=== PATIENT | male | born 1955 | race Two or more races ===

== ENCOUNTER 2021-10-01 18:33 | Emergency (ER) | payer SELFPAY ==
[~2021-10-01] VITALS: Ht 185.4 cm; Wt 73.0 kg
[2021-10-01 18:36] VITALS: BP 160/90
== END 2021-10-01 22:32 | disposition left against medical advice (07) ==
LOC: ER 18:33
DX: R10.9 Unspecified abdominal pain (principal); Z53.21 Procedure and treatment not carried out due to patient leaving prior to being seen by health care provider